=== PATIENT | female | born 1985 | race Caucasian/White ===

== ENCOUNTER 2018-12-25 16:01 | Emergency (ER) | payer OTHER ==
[~2018-12-25] VITALS: Ht 162.6 cm; Wt 108.4 kg
[2018-12-25] MEDS ORDERED: METFORMIN (16:20)
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
[2018-12-25] MEDS ORDERED: CYCLOBENZAPRINE 10 MG (FLEXERIL) TAB PO STA (17:35)
[2018-12-25] MEDS ORDERED: KETOROLAC 60 MG/2 ML VIAL IM STA (17:35)
[2018-12-25] MEDS ORDERED: CYCL10TA9 PO (17:40)
[2018-12-25 18:08] VITALS: BP 136/70
== END 2018-12-25 18:08 | disposition home or self-care (01) ==
LOC: ER 16:03
DX: S09.90XA Unspecified injury of head, initial encounter (principal); S16.1XXA Strain of muscle, fascia and tendon at neck level, initial encounter; R40.2142 Coma scale, eyes open, spontaneous, at arrival to emergency department; R40.2252 Coma scale, best verbal response, oriented, at arrival to emergency department; R40.2362 Coma scale, best motor response, obeys commands, at arrival to emergency department; F17.200 Nicotine dependence, unspecified, uncomplicated; V49.40XA Driver injured in collision with unspecified motor vehicles in traffic accident, initial encounter
CPT/HCPCS: 36415; 70450; 72125; 84703; 96372